=== PATIENT | female | born 1950 | race Caucasian/White ===

== ENCOUNTER 2020-05-07 13:33 | Outpatient (CLI) | payer MEDICARE, SELFPAY ==
[2020-05-07 13:47] LABS: Basophils Percent Auto 0.4 % (0.2-1.2); Eosinophils Absolute Auto 0.2 K/mm3 (0-0.3); Eosinophils Percent Auto 3.1 % (0-4.4); Hematocrit 40.1 % (37.0-47.0); Hemoglobin 13.2 g/dL (12.0-15.0); Immature Granulocyte Absolute 0.01 K/mm3 (0.00-0.031); Immature Granulocyte Percent A 0.2 % (0-0.5); Lymphocytes Absolute Auto 0.68 K/mm3 (0.9-3.2); Lymphocytes Percent Auto 12.4 % (18.3-44.2); Mean Corpuscular HGB Conc 32.9 g/dl (32-36); Mean Corpuscular Hemoglobin 30.5 pg (26-34); Mean Corpuscular Volume 92.6 fl (80-100); Mean Platelet Volume 10.6 fl (7.4-10.4); Monocytes Absolute Auto 0.5 K/mm3 (0.1-0.6); Monocytes Percent Auto 8.4 % (2.6-8.5); Neutrophils Absolute Auto 4.1 K/mm3 (1.3-6.7); Neutrophils Percent Auto 75.5 % (45.5-73.1); Platelet Count Result 158 k/mm3 (150-375); Red Blood Count 4.33 M/mm3 (4.2-5.4); Red Cell Distribution Width 13.9 % (11.5-14.5); White Blood Count 5.5 K/mm3 (4.5-10.0)
[2020-05-07 13:52] LABS: Blood Urea Nitrogen 23 mg/dL (8-26); Carbon Dioxide 31 mmol/L (22-30); Chloride 101 mmol/L (98-109); Estimated Glomerular Filt Rate 44; Glucose 112 mg/dL (70-105); Potassium 3.8 mmol/L (3.5-4.9); Sodium 142 mmol/L (138-146)
== END 2020-05-07 13:34 | disposition home or self-care (01) ==
PROVIDERS: PCP Physician Assistant; Visit Provider Internal Medicine Hematology & Oncology
DX: C50.212 Malignant neoplasm of upper-inner quadrant of left female breast (principal)
CPT/HCPCS: 36415; 80048; 85025

== ENCOUNTER 2020-05-14 12:03 | Outpatient (CLI) | payer MEDICARE, SELFPAY ==
--- NOTE | ~2020-05-14 | MMUS_ITS ---
EXAMINATION: MM diagnostic [facility] BI w [facility]ank, US breast RT limited HISTORY: Bilateral partial mastectomy and radiation treatment in August 2019 for precancer on the r ight and malignancy on the left TECHNIQUE: 3-D tomosynthesis images of both breasts were performed and synthetic 2-D images were gene rated. Bilateral rotated lateral cc views. CAD analysis was submitted and interpreted. High resolutio n breast ultrasound was performed. COMPARISON: 05/16/2019 bilateral diagnostic digital mammogram and limited left breast ultrasound BREAST PARENCHYMAL COMPOSITION: There are scattered areas of fibroglandular density. FINDINGS: MAMMOGRAPHIC FINDINGS: An approximately 7 cm rounded relatively circumscribed opacity is noted in the posterior aspect of th e outer mid right breast. There are adjacent surgical clips. There is asymmetric irregular soft tissue density associated with multiple surgical clips in the post erior aspect of the upper outer quadrant of the left breast. There are accentuated stroma markings th roughout the left breast compared to the right. No suspicious mass or architectural distortion or malignant calcification in either breast is noted o therwise. There are scattered bilateral benign calcifications. ULTRASOUND: An approximately 3 x 8 cm mildly septated fluid collection is identified in the right breast at 9:00 5 cm from the nipple in the area of the surgical scar, consistent with seroma. IMPRESSION: 1. Bilateral postoperative changes including right breast seroma 2. No mammographic evidence of malignancy Recommendation: Routine mammographic screening and any additional imaging follow-up of this breast ca ncer patient as clinically appropriate BI-RADS Category 2: Benign Reviewed, dictated and finalized at location A. IMPRESSION: 1. Bilateral postoperative changes including right breast seroma 2. No mammographic evidence of malignancy Recommendation: Routine mammographic screening and any additional imaging follo w-up of this breast cancer patient as clinically appropriate BI-RADS Category 2: Benign
== END 2020-05-14 12:04 | disposition home or self-care (01) ==
PROVIDERS: PCP Physician Assistant; Visit Provider Radiology Radiation Oncology
DX: C50.111 Malignant neoplasm of central portion of right female breast (principal); R92.8 Other abnormal and inconclusive findings on diagnostic imaging of breast
CPT/HCPCS: 76642; 77062; 77066; G0279

== ENCOUNTER 2020-07-29 15:06 | Outpatient (CLI) | payer MEDICARE, SELFPAY ==
[2020-07-29 15:37] LABS: Basophils Percent Auto 0.3 % (0.2-1.2); Eosinophils Absolute Auto 0.1 K/mm3 (0-0.3); Eosinophils Percent Auto 1.5 % (0-4.4); Hematocrit 39.6 % (37.0-47.0); Immature Granulocyte Absolute 0.01 K/mm3 (0.00-0.031); Immature Granulocyte Percent A 0.2 % (0-0.5); Lymphocytes Absolute Auto 0.71 K/mm3 (0.9-3.2); Lymphocytes Percent Auto 10.9 % (18.3-44.2); Mean Corpuscular HGB Conc 32.8 g/dl (32-36); Mean Corpuscular Hemoglobin 30.5 pg (26-34); Mean Platelet Volume 10.6 fl (7.4-10.4); Monocytes Absolute Auto 0.5 K/mm3 (0.1-0.6); Monocytes Percent Auto 7.5 % (2.6-8.5); Neutrophils Absolute Auto 5.2 K/mm3 (1.3-6.7); Neutrophils Percent Auto 79.6 % (45.5-73.1); Platelet Count Result 180 k/mm3 (150-375); Red Blood Count 4.26 M/mm3 (4.2-5.4); Red Cell Distribution Width 14.3 % (11.5-14.5); White Blood Count 6.5 K/mm3 (4.5-10.0)
[2020-07-29 17:10] LABS: Alanine Aminotransferase 45 U/L (4-35); Albumin Level 4.5 g/dL (3.5-5.1); Alkaline Phosphatase 89 U/L (38-126); Anion Gap 8 mmol/L (8-16); Aspartate Amino Transferase 58 U/L (14-36); Bilirubin,Total 0.6 mg/dL (0.2-1.3); Blood Urea Nitrogen 29 mg/dL (7-17); Calcium 9.8 mg/dL (8.4-10.2); Carbon Dioxide 28 mmol/L (22-30); Chloride 103 mmol/L (98-107); Estimated Glomerular Filt Rate 49; Glucose 101 mg/dL (65-105); Potassium 4.7 mmol/L (3.4-5.0); Sodium 139 mmol/L (137-145)
[2020-08-02 14:21] LABS: CA 27.29 25 U/mL (<38)
== END 2020-07-29 15:07 | disposition home or self-care (01) ==
LOC: ANHLAB 15:08
PROVIDERS: PCP Physician Assistant; Visit Provider Internal Medicine Hematology & Oncology
DX: C50.212 Malignant neoplasm of upper-inner quadrant of left female breast (principal)
CPT/HCPCS: 36415; 80053; 85025; 86300

== ENCOUNTER 2020-09-13 12:45 | Outpatient (CLI) | payer MEDICARE, SELFPAY ==
--- NOTE | ~2020-09-13 | DEXA_ITS ---
Bone Density Report Name: Camila Cherry Age: 70 Sex: Female Ethnicity: White Date of : 1950 Indication: postmenopausal; cancer; Referring Provider: Jo Ann Kumar Study: Bone densitometry was performed. Exam Date: September 13, 2020 Accession number: [id number] Bone Density: Region BMD T-score Z-score Classification AP Spine (L1-L4) 1.365 2.9 5.1 Normal Femoral Neck (Left) 0.665 -1.7 0.2 Osteopenia Total Hip (Left) 0.839 -0.8 0.7 Normal Total Hip Bilateral Avg 0.856 -0.7 0.8 Normal Femoral Neck (Right) 0.669 -1.6 0.3 Osteopenia Total Hip (Right) 0.872 -0.6 1.0 Normal World Health Organization criteria for BMD impression classify patients as: Normal (T-score at or above -1.0), Osteopenia (T-score between -1.0 and -2.5), or Osteoporosis (T-score at or below -2.5). 10-year Fracture Risk(1): Major Osteoporotic Fracture 10% Hip Fracture 1.7% Reported Risk Factors: [place] (), Neck BMD=0.669, BMI=31.1 (1) FRAX(R) Version 3.08. Fracture probability calculated for an untreated patient. Fracture probability may be lower if the patient has received treatment. Clinical Information Provided by Patient: Has used the following medications: Vitamin D, Calcium Has the following medical conditions: Cancer Patient maximum height was 65 Menopause Age: 44 No regular weight bearing exercise Does not regularly consume dairy products Drinks caffeinated beverages Onset of menses at age 15 Number of children 2 Impression: The patient has low bone mass, based on the Left Femoral Neck T-score. The patient has an estimated ten-year risk of hip fracture of 1.7% and an estimated ten-year risk of major fracture of 10%, based on the WHO FRAX algorithm. Discussion: BONE DENSITY IS LOW AT ONE OR MORE SKELETAL SITES. This patient's lowest T-score is low at one or more skeletal sites. It meets the World Health Organization's (WHO) criteria for ?low bone mass? (T-score between -1.0 and -2.5). The patient's 10-year risk of fracture as calculated by FRAX is less than the threshold where pharmacological therapy is recommended by the National Osteoporosis Foundation (NOF). However, all treatment decisions require clinical judgment and consideration of individual patient factors, including patient preferences, comorbidities, previous drug use, risk factors not captured in the FRAX model (e.g., frailty, falls, vitamin D deficiency, increased bone turnover, interval significant decline in bone density) and possible under or overestimation of fracture risk by FRAX. The patient should follow a healthful lifestyle (good nutrition with adequate calcium and vitamin D, and appropriate weight-bearing exercise). Follow-Up: Consider repeating this study in 2 to 3 years to reassess this patient's status, or sooner if there is so
== END 2020-09-13 12:46 | disposition home or self-care (01) ==
PROVIDERS: PCP Physician Assistant; Visit Provider Nurse Practitioner Adult Health
DX: Z78.0 Asymptomatic menopausal state (principal); M85.852 Other specified disorders of bone density and structure, left thigh; M85.851 Other specified disorders of bone density and structure, right thigh
CPT/HCPCS: 77080

== ENCOUNTER 2020-10-29 10:10 | Outpatient (CLI) | payer MEDICARE, SELFPAY ==
[2020-10-29 10:34] LABS: Basophils Percent Auto 0.5 % (0.2-1.2); Eosinophils Absolute Auto 0.2 K/mm3 (0-0.3); Eosinophils Percent Auto 2.8 % (0-4.4); Hemoglobin 13.5 g/dL (12.0-15.0); Immature Granulocyte Absolute 0.02 K/mm3 (0.00-0.031); Immature Granulocyte Percent A 0.3 % (0-0.5); Lymphocytes Absolute Auto 0.91 K/mm3 (0.9-3.2); Mean Corpuscular HGB Conc 32.9 g/dl (32-36); Mean Corpuscular Hemoglobin 30.4 pg (26-34); Mean Corpuscular Volume 92.3 fl (80-100); Mean Platelet Volume 10.1 fl (7.4-10.4); Monocytes Absolute Auto 0.5 K/mm3 (0.1-0.6); Monocytes Percent Auto 8.3 % (2.6-8.5); Neutrophils Absolute Auto 4.4 K/mm3 (1.3-6.7); Neutrophils Percent Auto 73.1 % (45.5-73.1); Platelet Count Result 168 k/mm3 (150-375); Red Blood Count 4.44 M/mm3 (4.2-5.4); White Blood Count 6.1 K/mm3 (4.5-10.0)
[2020-10-29 12:53] LABS: Alanine Aminotransferase 33 U/L (4-35); Albumin Level 4.2 g/dL (3.5-5.1); Alkaline Phosphatase 80 U/L (38-126); Anion Gap 9 mmol/L (8-16); Aspartate Amino Transferase 36 U/L (14-36); Bilirubin,Total 0.7 mg/dL (0.2-1.3); Blood Urea Nitrogen 24 mg/dL (7-17); Calcium 10.3 mg/dL (8.4-10.2); Carbon Dioxide 31 mmol/L (22-30); Chloride 104 mmol/L (98-107); Estimated Glomerular Filt Rate 55; Glucose 101 mg/dL (65-105); Potassium 4.2 mmol/L (3.4-5.0); Sodium 144 mmol/L (137-145)
== END 2020-10-29 10:11 | disposition home or self-care (01) ==
LOC: ANHLAB 10:12
PROVIDERS: PCP Physician Assistant; Visit Provider Internal Medicine Hematology & Oncology
DX: C50.212 Malignant neoplasm of upper-inner quadrant of left female breast (principal); Z17.0 Estrogen receptor positive status [ER+]
CPT/HCPCS: 36415; 80053; 85025

== ENCOUNTER 2021-01-28 14:35 | Outpatient (CLI) | payer MEDICARE, SELFPAY ==
[2021-01-28 14:53] LABS: Basophils Percent Auto 0.4 % (0.2-1.2); Eosinophils Absolute Auto 0.3 K/mm3 (0-0.3); Eosinophils Percent Auto 3.5 % (0-4.4); Hematocrit 41.1 % (37.0-47.0); Hemoglobin 13.4 g/dL (12.0-15.0); Immature Granulocyte Absolute 0.02 K/mm3 (0.00-0.031); Immature Granulocyte Percent A 0.3 % (0-0.5); Lymphocytes Absolute Auto 0.88 K/mm3 (0.9-3.2); Lymphocytes Percent Auto 12.4 % (18.3-44.2); Mean Corpuscular HGB Conc 32.6 g/dl (32-36); Mean Corpuscular Hemoglobin 30.2 pg (26-34); Mean Corpuscular Volume 92.8 fl (80-100); Mean Platelet Volume 10.1 fl (7.4-10.4); Monocytes Absolute Auto 0.6 K/mm3 (0.1-0.6); Monocytes Percent Auto 8.2 % (2.6-8.5); Neutrophils Absolute Auto 5.4 K/mm3 (1.3-6.7); Neutrophils Percent Auto 75.2 % (45.5-73.1); Platelet Count Result 185 k/mm3 (150-375); Red Blood Count 4.43 M/mm3 (4.2-5.4); Red Cell Distribution Width 14.1 % (11.5-14.5); White Blood Count 7.1 K/mm3 (4.5-10.0)
[2021-01-28 16:57] LABS: Alanine Aminotransferase 29 U/L (4-35); Albumin Level 4.5 g/dL (3.5-5.1); Alkaline Phosphatase 86 U/L (38-126); Anion Gap 7 mmol/L (8-16); Aspartate Amino Transferase 43 U/L (14-36); Bilirubin,Total 0.4 mg/dL (0.2-1.3); Blood Urea Nitrogen 25 mg/dL (7-17); Calcium 10.1 mg/dL (8.4-10.2); Carbon Dioxide 34 mmol/L (22-30); Chloride 102 mmol/L (98-107); Estimated Glomerular Filt Rate 40; Glucose 91 mg/dL (65-105); Potassium 3.9 mmol/L (3.4-5.0); Sodium 143 mmol/L (137-145)
[2021-02-01 10:26] LABS: CA 15-3 17 U/mL (<32)
== END 2021-01-28 14:36 | disposition home or self-care (01) ==
PROVIDERS: PCP Physician Assistant; Visit Provider Internal Medicine Hematology & Oncology
DX: C50.212 Malignant neoplasm of upper-inner quadrant of left female breast (principal); Z17.0 Estrogen receptor positive status [ER+]
CPT/HCPCS: 36415; 80053; 85025; 86300

== ENCOUNTER 2021-05-16 14:24 | Outpatient (CLI) | payer MEDICARE, SELFPAY ==
--- NOTE | ~2021-05-16 | MM_ITS ---
EXAMINATION: MM screening [facility] BI w mayank HISTORY: Screening mammogram, history of left breast cancer TECHNIQUE: Craniocaudal and mediolateral oblique 3-D tomosynthesis images were obtained and synthetic 2-D images were generated. CAD analysis was submitted and interpreted. COMPARISON: 05/14/2020, 05/16/2019 BREAST PARENCHYMAL COMPOSITION: There are scattered areas of fibroglandular density. FINDINGS: There are stable lumpectomy changes in the upper outer quadrant of the left breast. A large seroma of the upper outer quadrant of the right breast persists but has decreased in size. There is no evidence of suspicious mass, calcification, or architectural distortion to suggest malignancy in e ither breast. There has been no suspicious interval change. IMPRESSION: 1. No mammographic evidence of malignancy. 2. Recommend routine screening mammography in one year. BI-RADS Category 2: Benign finding(s). Reviewed, dictated and finalized at location A.
== END 2021-05-16 14:25 | disposition home or self-care (01) ==
LOC: ANHIMG 14:26
PROVIDERS: PCP Physician Assistant; Visit Provider Surgery
DX: Z12.31 Encounter for screening mammogram for malignant neoplasm of breast (principal)
CPT/HCPCS: 77063; 77067

== ENCOUNTER 2021-06-03 13:38 | Outpatient (CLI) | payer MEDICARE, SELFPAY ==
[2021-06-03 14:04] LABS: Basophils Percent Auto 0.4 % (0.2-1.2); Eosinophils Absolute Auto 0.2 K/mm3 (0-0.3); Eosinophils Percent Auto 3.2 % (0-4.4); Hematocrit 37.1 % (37.0-47.0); Hemoglobin 12.1 g/dL (12.0-15.0); Immature Granulocyte Absolute 0.02 K/mm3 (0.00-0.031); Immature Granulocyte Percent A 0.3 % (0-0.5); Lymphocytes Absolute Auto 0.85 K/mm3 (0.9-3.2); Lymphocytes Percent Auto 12.5 % (18.3-44.2); Mean Corpuscular HGB Conc 32.6 g/dl (32-36); Mean Corpuscular Hemoglobin 30.1 pg (26-34); Mean Corpuscular Volume 92.3 fl (80-100); Mean Platelet Volume 10.5 fl (7.4-10.4); Monocytes Absolute Auto 0.5 K/mm3 (0.1-0.6); Monocytes Percent Auto 6.7 % (2.6-8.5); Neutrophils Absolute Auto 5.2 K/mm3 (1.3-6.7); Neutrophils Percent Auto 76.9 % (45.5-73.1); Platelet Count Result 172 k/mm3 (150-375); Red Blood Count 4.02 M/mm3 (4.2-5.4); Red Cell Distribution Width 14.3 % (11.5-14.5); White Blood Count 6.8 K/mm3 (4.5-10.0)
[2021-06-03 18:41] LABS: Alanine Aminotransferase 80 U/L (4-35); Albumin Level 4.1 g/dL (3.5-5.1); Alkaline Phosphatase 132 U/L (38-126); Anion Gap 9 mmol/L (8-16); Aspartate Amino Transferase 49 U/L (14-36); Bilirubin,Total 0.4 mg/dL (0.2-1.3); Blood Urea Nitrogen 31 mg/dL (7-17); Calcium 9.6 mg/dL (8.4-10.2); Carbon Dioxide 29 mmol/L (22-30); Chloride 104 mmol/L (98-107); Estimated Glomerular Filt Rate 37; Glucose 100 mg/dL (65-110); Potassium 3.8 mmol/L (3.4-5.0); Sodium 142 mmol/L (137-145)
[2021-06-06 06:49] LABS: CA 15-3 15 U/mL (<32)
== END 2021-06-03 13:39 | disposition home or self-care (01) ==
LOC: ANHLAB 13:43
PROVIDERS: PCP Physician Assistant; Visit Provider Internal Medicine Hematology & Oncology
DX: C50.212 Malignant neoplasm of upper-inner quadrant of left female breast (principal); Z17.0 Estrogen receptor positive status [ER+]
CPT/HCPCS: 36415; 80053; 85025; 86300

== ENCOUNTER 2021-07-31 08:50 | Outpatient (CLI) | payer MEDICARE, SELFPAY ==
--- NOTE | ~2021-07-31 | US_ITS ---
EXAMINATION: US abdomen complete DATE: 07/31/2021 10:05 INDICATION: Elevated liver function tests TECHNIQUE: Multiple grayscale and Doppler ultrasound images of the abdomen were obtained. COMPARISON: None available FINDINGS: Bowel gas obscures visualization of the pancreas. The liver is normal with normal echogenic ity and echotexture. No surface nodularity. Normal hepatopetal flow in the main portal vein. The gall bladder is contracted and contains multiple stones. No gallbladder wall thickening or pericholecystic fluid are identified. The normal common bile duct measures 4 mm. There was no sonographic Loya sig n. The visualized portions of the aorta and inferior vena cava are normal. The right kidney measures 7.8 x 3.5 x 3.7 cm. The left kidney measures 11.0 x 3.4 x 4.2 cm. The kidne ys demonstrate normal parenchymal echogenicity. There is no hydronephrosis. The spleen is normal in a ppearance and measures 10.7 cm. IMPRESSION: 1. Cholelithiasis without evidence cholecystitis. Reviewed, dictated and finalized at location B.
== END 2021-07-31 08:51 | disposition home or self-care (01) ==
LOC: ANHIMG 08:51
PROVIDERS: PCP Physician Assistant; Visit Provider Internal Medicine Hematology & Oncology
DX: R79.89 Other specified abnormal findings of blood chemistry (principal); K80.20 Calculus of gallbladder without cholecystitis without obstruction
CPT/HCPCS: 76700

== ENCOUNTER 2022-06-22 14:45 | Outpatient (CLI) | payer MEDICARE, SELFPAY ==
--- NOTE | ~2022-06-22 | US_ITS ---
EXAMINATION: US venous doppler [facility] DATE: 06/22/2022 15:37 INDICATION: Bilateral lower limb pain TECHNIQUE: Odom scale images without and with compression and Doppler images of the bilateral lower e xtremity veins were obtained. COMPARISON: None FINDINGS: The right common femoral vein, profunda femoral vein, femoral vein, popliteal vein, peroneal trunk, p osterior tibial veins, and greater saphenous vein are patent. The left common femoral vein, profunda femoral vein, femoral vein, popliteal vein, peroneal trunk, po sterior tibial veins, and greater saphenous vein are patent. IMPRESSION: 1. Patent bilateral lower extremity veins. No evidence of deep venous thrombosis. Reviewed, dictated and finalized at location A. IMPRESSION: 1. Patent bilateral lower extremity veins. No evidence of deep venous thrombosi s.
== END 2022-06-22 14:46 | disposition home or self-care (01) ==
PROVIDERS: PCP Physician Assistant; Visit Provider Internal Medicine Medical Oncology
DX: M79.604 Pain in right leg (principal); M79.605 Pain in left leg
CPT/HCPCS: 93970

== ENCOUNTER 2022-06-25 10:11 | Outpatient (CLI) | payer MEDICARE, SELFPAY ==
--- NOTE | ~2022-06-25 | MM_ITS ---
EXAMINATION: MM screening [facility] BI w mayank HISTORY: Screening mammogram TECHNIQUE: Craniocaudal and mediolateral oblique 3-D tomosynthesis images were obtained and synthetic 2-D images were generated. CAD analysis was submitted and interpreted. COMPARISON: 05/16/2021 bilateral screening mammogram 05/14/2020 bilateral diagnostic mammography and limited right breast ultrasound 05/16/2019 bilateral diagnostic mammography and limited left breast ultrasound BREAST PARENCHYMAL COMPOSITION: There are scattered areas of fibroglandular density. FINDINGS: Stable large seroma and some overlying retraction in the posterior outer mid right breast. Stable postsurgical scarring and retraction in the posterior upper outer quadrant of the left breast. Occasional benign calcifications. No interval suspicious mass or new architectural distortion or retr action, skin thickening or retraction is noted. There is no evidence of suspicious mass, calcificatio n, or architectural distortion to suggest malignancy in either breast. There has been no suspicious i nterval change. IMPRESSION: 1. No mammographic evidence of malignancy. 2. Recommend routine screening mammography in one year. BI-RADS Category 2: Benign finding(s). Reviewed, dictated and finalized at location C.
== END 2022-06-25 10:12 | disposition home or self-care (01) ==
PROVIDERS: PCP Physician Assistant; Visit Provider Surgery
DX: Z12.31 Encounter for screening mammogram for malignant neoplasm of breast (principal)
CPT/HCPCS: 77063; 77067

== ENCOUNTER 2022-10-16 11:29 | Outpatient (CLI) | payer MEDICARE, SELFPAY ==
[2022-10-16 11:49] LABS: Appearance Urine Slightly Cloudy (Clear); Bilirubin Urine Negative (Negative); Blood Urine 2+ (Negative); Color Urine Yellow (Yellow); Glucose Urine UA Negative (Negative); Ketones Urine Negative (Negative); Leukocyte Esterase Ur 3+ LEU/UL (NEGATIVE); Nitrate Urine Positive (Negative); Protein Urine 2+ mg/dL (Negative)
[2022-10-16 11:57] LABS: Bacteria Urine Trace /hpf; Mucus Urine Rare /lpf; RBC Urine 51-75 /hpf (0-2); Squamous Epithelial Cell Urine Occasional /hpf (Few); WBC Urine >75 /hpf (0-3)
[2022-10-16 11:58] LABS: Add Urine Microscopic? YES
== END 2022-10-16 11:30 | disposition home or self-care (01) ==
PROVIDERS: PCP Physician Assistant; Visit Provider Physician Assistant
DX: R30.0 Dysuria (principal)
CPT/HCPCS: 81001; 87077; 87086; 87186

== ENCOUNTER 2023-06-28 14:44 | Outpatient (CLI) | payer MEDICARE, SELFPAY ==
--- NOTE | ~2023-06-28 | MM_ITS ---
EXAMINATION: MM screening [facility] BI w mayank HISTORY: History of left breast cancer in three benign right breast surgeries TECHNIQUE: Craniocaudal and mediolateral oblique 3-D tomosynthesis images were obtained and synthetic 2-D images were generated. CAD analysis was submitted and interpreted. COMPARISON: 06/25/2022, 05/16/2021, 05/14/2020, 05/16/2019 BREAST PARENCHYMAL COMPOSITION: There are scattered areas of fibroglandular density. FINDINGS: There are stable lumpectomy changes in the upper outer quadrant of the left breast. A serom a in the upper outer quadrant of the right breast persists but has decreased in size. No suspicious m ass, calcification, or architectural distortion are identified in either breast to suggest malignancy . There has been no suspicious interval change. IMPRESSION: 1. No mammographic evidence of malignancy. 2. Recommend routine screening mammography in one year. BI-RADS Category 2: Benign finding(s). Reviewed, dictated and finalized at location A.
== END 2023-06-28 14:45 | disposition home or self-care (01) ==
PROVIDERS: PCP Physician Assistant; Visit Provider Surgery
DX: Z12.31 Encounter for screening mammogram for malignant neoplasm of breast (principal)
CPT/HCPCS: 77063; 77067

== ENCOUNTER 2023-08-11 12:40 | Outpatient (CLI) | payer MEDICARE, SELFPAY ==
--- NOTE | ~2023-08-11 | CT_ITS ---
Noncontrast CT scan of the left femur CLINICAL HISTORY: Breast cancer, pain TECHNIQUE: Axial noncontrast imaging of the left femur was performed. Sagittal and coronal reformatte d images were constructed. Dose reduction technique was used on this scan by utilizing automated expo sure control and iterative reconstruction technique. The dose-length product (DLP) was 1117.91 mGy-cm . Findings: No fracture and 5. No lytic or blastic lesion, or parasellar retraction, as identified. The re is severe osteoarthritis of the left hip joint, with [id number] appearance since severe superior joint space narrowing. There is mild reactive sclerosis and subchondral cystic change in the superio r left acetabulum and superior aspect of the left femoral head. Joint spaces at the knee are intact. Visualized musculature unremarkable. Probable moderate left hip joint effusion. Subcutaneous soft tis sues are unremarkable. IMPRESSION: Severe left hip joint osteoarthritis, as detailed above. Moderate left hip joint effusion, probably reactive. No lytic or blastic lesion, or fracture, identified. Reviewed, dictated and finalized at location . BOSS
== END 2023-08-11 12:41 | disposition home or self-care (01) ==
LOC: ANHIMG 12:44
PROVIDERS: PCP Physician Assistant; Visit Provider Internal Medicine Medical Oncology
DX: C50.412 Malignant neoplasm of upper-outer quadrant of left female breast (principal); Z17.0 Estrogen receptor positive status [ER+]; G89.3 Neoplasm related pain (acute) (chronic); M16.12 Unilateral primary osteoarthritis, left hip; M25.452 Effusion, left hip
CPT/HCPCS: 73700

== ENCOUNTER 2023-10-01 09:08 | Outpatient (CLI) | payer MEDICARE, SELFPAY ==
--- NOTE | ~2023-10-01 | XR_ITS ---
AP view of the pelvis and AP and lateral views of the left hip Clinical history: Pain Findings: No acute fracture or dislocation is seen. There is severe left hip joint osteoarthritis, wi th superior joint space narrowing and reactive sclerosis. Right hip joint space is preserved. SI join ts are unremarkable. Soft tissues are unremarkable. Impression: Severe left hip joint osteoarthritis. Reviewed, dictated and finalized at location M. [employer] Impression: Severe left hip joint osteoarthritis.
== END 2023-10-01 09:09 | disposition home or self-care (01) ==
PROVIDERS: PCP Physician Assistant; Visit Provider Orthopaedic Surgery
DX: M16.12 Unilateral primary osteoarthritis, left hip (principal)
CPT/HCPCS: 73502

== ENCOUNTER 2023-11-10 12:09 | Outpatient (CLI) | payer MEDICARE, SELFPAY ==
--- NOTE | 2023-11-10 12:19 | ECG_ITS ---
Measurements Intervals [place] Rate: 69 P: 58 LA: 196 QRS: 69 QRSD: 158 T: 38 QT: 420 QTc: 452 Interpretive Statements SINUS RHYTHM RIGHT BUNDLE BRANCH BLOCK [120+ ms QRS DURATION, UPRIGHT V1, 40+ ms S IN I/aVL/V4/V5/V6] ABNORMAL ECG NO PREVIOUS ECG AVAILABLE FOR COMPARISON Electronically Signed On 11-10-2023 13:19:56 [employer] by Everardo Cannon M.D.
[2023-11-10 13:16] LABS: Hematocrit 38.3 % (37.0-47.0); Hemoglobin 12.1 g/dL (12.0-15.0)
[2023-11-10 13:30] LABS: Albumin Level 4.1 g/dL (3.5-5.1); Estimated Glomerular Filt Rate 28; Glucose 97 mg/dL (65-110)
== END 2023-11-10 12:10 | disposition home or self-care (01) ==
LOC: ANHLAB 12:14
PROVIDERS: PCP Physician Assistant; Visit Provider Orthopaedic Surgery
DX: E78.5 Hyperlipidemia, unspecified (principal); M16.12 Unilateral primary osteoarthritis, left hip; I45.10 Unspecified right bundle-branch block
CPT/HCPCS: 36415; 82040; 82565; 82947; 85014; 85018; 93005

== ENCOUNTER 2024-01-13 08:37 | Outpatient (CLI) | payer MEDICARE, SELFPAY ==
--- NOTE | ~2024-01-13 | NM_ITS ---
EXAMINATION: NM daniel stress w perfusion DATE: 01/13/2024 10:40 INDICATION: Encounter for preprocedural cardiovascular examination TECHNIQUE: Rest images were obtained following intravenous administration of 10.8 mCi Tc99m tetrofosm in (Myoview). The patient was infused intravenously with Lexiscan (Regadenoson). Then, 34.7 mCi Tc99m tetrofosmin (Myoview) was administered intravenously, and stress images were obtained. Data was lew nstructed into short axis and horizontal and vertical long axis SPECT images. Gated SPECT images were also obtained. COMPARISON: None. FINDINGS: There is no definite reversible or fixed perfusion abnormality to suggest ischemia or infar ction. There is normal left ventricular chamber size, wall motion and ejection fraction. Left ventr icular ejection fraction measures >70%. IMPRESSION: 1. Normal myocardial perfusion at rest and during stress. 2. Left ventricular ejection fraction measuring >70%. Reviewed, dictated and finalized at location A.
--- NOTE | 2024-01-13 08:45 | EST_ITS ---
Patient Info Name: Camila Cherry Age: 73 years : 1950 Gender: Female Ht: 64 in Wt: 181 lbs BSA: 1.95 m2 HR: 67 bpm BP: 143 / 81 mmHg Heart Rhythm: Sinus Rhythm Exam Date: 01/13/2024 9:37 AM Exam Location: Echo Lab Patient Status: Outpatient Admit Date: 01/13/2024 Staff Ordering Physician: Sebastian Kitchen DO Attending Provider: Sebastian Kitchen DO Exercise Technologist: Angie Travis CT Exercise Physician: Sebastian Kitchen DO Exam Type: CA stress daniel w NM Study Info Indications Z01.810 - Encounter for preprocedural cardiovascular examination A regadenoson stress test was performed. Summary 1. 1. Negative lexiscan stress test for ischemic ST changes by ECG criteria. 2. 2. Baseline hypertension. 3. 3. Nuclear scan to follow and will be reported separately. Please correlate with it. 4. 4. Patient informed of the above results. Protocol: Lexiscan Stress ECG Details Stage: REST Duration (min): 1 min : 7 sec HR (bpm): 68 SBP (mmHg): 143 DBP (mmHg): 81 Stage: REST Duration (min): 6 min : 11 sec HR (bpm): 67 SBP (mmHg): 146 DBP (mmHg): 81 Stage: STAGE 1 Duration (min): 0 min : 59 sec HR (bpm): 69 SBP (mmHg): 146 DBP (mmHg): 81 Stage: RECOVERY Duration (min): 1 min : 0 sec HR (bpm): 82 SBP (mmHg): 146 DBP (mmHg): 81 Stage: RECOVERY Duration (min): 2 min : 0 sec HR (bpm): 78 SBP (mmHg): 146 DBP (mmHg): 81 Stage: RECOVERY Duration (min): 3 min : 0 sec HR (bpm): 76 SBP (mmHg): 137 DBP (mmHg): 77 Stage: RECOVERY Duration (min): 3 min : 18 sec HR (bpm): 76 SBP (mmHg): 137 DBP (mmHg): 77 Rest HR: 67 bpm Peak HR: 83 bpm Rest Sys BP: 146 mmHg Peak Sys BP: 137 mmHg Max Pred HR: 146 bpm % Max Pred HR: 57 % Target HR: 124 bpm Max RPP: 11,371 bpm*mmHg Termination Reason: Completed protocol Cardiac Symptoms: Shortness of breath Total Time: 1 min : 0 sec Rest Lynne BP: 81 mmHg Peak Lynne BP: 77 mmHg Total Dose: 0.4 mg Resting ECG Sinus rhythm. Stress ECG No ST changes. Arrhythmias None. Report Signatures
== END 2024-01-13 08:38 | disposition home or self-care (01) ==
PROVIDERS: PCP Physician Assistant; Visit Provider Internal Medicine Cardiovascular Disease
DX: Z01.810 Encounter for preprocedural cardiovascular examination (principal)
CPT/HCPCS: 78452; 93017; A9502; J2785

== ENCOUNTER 2024-03-15 11:34 | Outpatient (CLI) | payer MEDICARE, SELFPAY ==
[2024-03-15 13:27] LABS: Basophils Percent Auto 0.4 % (0.2-1.2); Eosinophils Absolute Auto 0.2 K/mm3 (0-0.3); Eosinophils Percent Auto 2.6 % (0-4.4); Hemoglobin 12.7 g/dL (12.0-15.0); Immature Granulocyte Absolute 0.02 K/mm3 (0.00-0.031); Immature Granulocyte Percent A 0.2 % (0-0.5); Lymphocytes Percent Auto 13.7 % (18.3-44.2); Mean Corpuscular HGB Conc 31.8 g/dl (32-36); Mean Corpuscular Hemoglobin 31.9 pg (26-34); Mean Corpuscular Volume 100.5 fl (80-100); Mean Platelet Volume 10.3 fl (7.4-10.4); Monocytes Absolute Auto 0.6 K/mm3 (0.1-0.6); Monocytes Percent Auto 7.2 % (2.6-8.5); Neutrophils Absolute Auto 6.1 K/mm3 (1.3-6.7); Neutrophils Percent Auto 75.9 % (45.5-73.1); Platelet Count Result 158 k/mm3 (150-375); Red Blood Count 3.98 M/mm3 (4.2-5.4)
[2024-03-15 13:30] LABS: Albumin Level 4.1 g/dL (3.5-5.1)
[2024-03-15 13:34] LABS: Anion Gap 5 mmol/L (4-12); Blood Urea Nitrogen 37 mg/dL (7-17); Calcium 10.4 mg/dL (8.4-10.2); Carbon Dioxide 28 mmol/L (22-30); Chloride 109 mmol/L (98-107); Estimated Glomerular Filt Rate 26; Glucose 101 mg/dL (65-110); Potassium 4.7 mmol/L (3.4-5.0); Sodium 142 mmol/L (137-145)
[2024-03-15 13:45] LABS: Urine Cotinine NEGATIVE
[2024-03-15 13:48] LABS: Partial Thromboplastin Time 28.5 Seconds (22.3-36.8); Prothrombin Time 13.2 Seconds (11.1-14.7)
[2024-03-15 13:50] LABS: Hemoglobin A1C 5.8 % (<5.7)
[2024-03-15 14:37] LABS: MRSA (PCR) NOT DETECTED (NOT DETECTE)
== END 2024-03-15 11:35 | disposition home or self-care (01) ==
PROVIDERS: Anesthesiology; Visit Provider Orthopaedic Surgery
DX: M16.12 Unilateral primary osteoarthritis, left hip (principal); N18.32 Chronic kidney disease, stage 3b; Z01.818 Encounter for other preprocedural examination
CPT/HCPCS: 36415; 80048; 80307; 82040; 83036; 85025; 85610; 85730; 87641

== ENCOUNTER 2024-04-11 02:30 | Day surgery (SDC) | payer MEDICARE, SELFPAY ==
[2024-03-15 11:00] VITALS: BP 141/68; PULSE 68; RESP 16; TEMP 37.1; O2SAT 95
--- NOTE | 2024-03-15 11:43 | PC.NURSE ---
Report to the Outpatient Waiting Room, entrance under the green pavilion located off [facility], at time ___6:00AM____ on date ___04/11/24____. Planned Procedure Time: __7:30AM . Time changes happen often and if your time is changed the preop area will call you the afternoon before. - You and your visitor will be asked to self-screen and do not enter if you have any COVID symptoms. - A mask is optional within the hospital at this time. Patients may have clear liquids (water, carbonated beverages, clear teas, apple juice) until 3 hours prior to surgery with a maximum of 20 ounces. - No food from midnight until time of surgery. Take the following medications with a SIP of water the morning of surgery: CLONIDINE, LABETALOL. USE ALBUTEROL INHALER NEEDED.__ DO NOT STOP ANY OF YOUR OTHER PRESCRIPTION MEDICATIONS PRIOR TO SURGERY ?EXCEPT THE FOLLOWING Medications to discontinue per physician ____HOLD ALL VITAMINS/SUPPLEMENTS 3 DAYS PRE-OP PER ANESTHESIA Date to take last dose 04/07/24 Please no make-up, nail thai, hairspray, perfume, deodorant, or body powder the day of surgery. No jewelry (including any body piercings) or valuables the day of surgery, leave them at home. Please take a shower or bath the night before, or the morning of, surgery with an antibacterial soap. Wear comfortable, loose fitting clothing. - Jewelry must be removed prior to entering the operating room. Rings and piercings that are not removed may be cut off. - The hospital will not accept responsibility for valuables. - Please leave all valuables, including medications, at home the day of surgery. If you are going home after surgery, a licensed straight truck driver must drive you home. - NO public transportation without another adult if you receive anesthesia. - We recommend that an adult stay with you for 24 hours following discharge. - We also recommend that you do not drive, make important decision, drink alcoholic beverages, or take any drugs that were not prescribed by your health care provider for at least 24 hours after your discharge time. If you or anyone in your household have experienced Covid symptoms in the past week, please notify your surgeon or the nurse liaison at the phone number below for possible testing. Telephone instructions given to __PATIENT & HUSBAND and asked if any additional questions and then verbalized understanding. Patient advised to call surgeon office or pre surgery nurse liaison [phone] if any additional questions.
[2024-03-15 12:05] VITALS: BMI 33.3
[2024-04-11] VITALS (25 sets, daily range): BP systolic 115–210; BP diastolic 49–108; PULSE 69–92; RESP 12–20; TEMP 35.6–36.7; O2SAT 90–100; BMI 35.6
--- NOTE | ~2024-04-11 | XR_ITS ---
EXAMINATION: XR hip LT min 2V DATE: 04/11/2024 10:03 INDICATION: Postoperative evaluation following left total hip arthroplasty TECHNIQUE: Anteroposterior and lateral views of the left hip were obtained. COMPARISON: 03/20/2024 FINDINGS: Interval placement of a left total hip arthroplasty which appears well seated in near anatomic alignm ent.At least moderate osteoarthritis at the visualized lower lumbar spine. Mild bilateral sacroiliac osteoarthritis. Expected subcutaneous gas in the postoperative bed. No fractures identified. IMPRESSION: 1. Left total hip arthroplasty, negative for postoperative purposes. Reviewed, dictated and finalized at location A.
[2024-04-11] MEDS: LACTATED RINGERS 1,000 ML 30 ML IV CONT ×2 (06:35→09:42)
[2024-04-11] MEDS: ACETAMINOPHEN 500 MG TABLET 1000 MG PO (06:38)
[2024-04-11] MEDS: TRANEXAMIC ACID 1,000MG/ISO100 1,000 MG/100 ML BAG 200 MG IVPB (06:40)
--- NOTE | 2024-04-11 06:55 | WPDANESEPPF ---
Anes - Initial Pre Proc Eval Procedure: Operation Date: 04/11/24 07:30 Proposed Procedures p Left Total Hip Arthroplasty - Vlad Wright MD Date/Time: 04/11/24 06:55 Surgeon: Vlad Wright MD Pre Op Diagnosis: primary OA left hip Patient Data Age: 74 Gender: F Height: 1.6 m Weight: 85.4 kg Last Vital Signs Temp 98.8 F 03/15/24 11:00 Pulse 68 03/15/24 11:00 Resp 16 03/15/24 11:00 BP 141/68 H 03/15/24 11:00 Pulse Ox 95 03/15/24 11:00 O2 Del Method Room Air 03/15/24 11:00 Allergies Allergy/AdvReac Type Severity Reaction Status Date / Time hydrochlorothiazide Allergy Unknown Gout Verified 04/11/24 06:51 Home Medications Medication Instructions Recorded Confirmed Type calcium carbonate (Calci-Chew) 500 mg PO DAILY 07/31/19 04/11/24 History cholecalciferol (vitamin D3) 50 2,000 unit PO DAILY 10/02/19 04/11/24 History mcg (2,000 unit) capsule multivitamin 1 cap PO DAILY 01/09/20 04/11/24 History raloxifene 60 mg tablet 60 mg PO DAILY 10/20/21 04/11/24 History albuterol sulfate 90 mcg/actuation 2 puff inhalation Q4-6H PRN 12/21/23 04/11/24 Rx aerosol inhaler (Ventolin HFA) shortness of breath or wheezing #8.5 grams labetalol 100 mg tablet 200 mg PO BID #360 tabs 01/19/24 04/11/24 Rx allopurinol 300 mg tablet 300 mg PO DAILY #90 tabs 02/08/24 04/11/24 Rx acetaminophen 650 mg 1,300 mg PO Q12H 03/15/24 04/11/24 History tablet,extended release clonidine HCl 0.1 mg tablet 0.1 mg PO BID 03/15/24 04/11/24 History lisinopril 40 mg tablet 40 mg PO QAM 03/15/24 04/11/24 History spironolactone 25 mg tablet 25 mg PO QAM 03/15/24 04/11/24 History Patient hx anesthesia problems: none Family hx anesthesia problems: none Results Review: All pre-operative results and documents have been reviewed as part of the pre-operative evaluation. [facility] Past Medical History Medical History Josue Zamora HTN (hypertension) Surgical History Surgical History History of lumpectomy of left breast (~10/2019) History of lumpectomy of right breast (~11/2019) Family History Family History Grandparent Diabetes mellitus Family history of hypercholesterolemia Mother Hypertension, Onset Age: 40 Social History Social History Smoking packs per day: 0.2 Smoking cigarettes per day: 4.0 Years smoked: 10 Smoking pack-years: 2.00 Smoking status: Former smoker Tobacco type: cigarettes Second hand tobacco smoke exposure: No Smoking end date: 03/27/86 Additional smoking assessment comments: social smoker one pack lasted a week Alcohol intake: current Drinks per week: 6 Substance use: never Substance use type: does not use Do You Feel Safe in your Home?: Yes Lack of Transportation: No Lack of Food: Never True Current Housing: I Have Housing Concerned About Future Housing: No Difficulty Paying Gas/Electric Bills: No Difficulty Paying for Meds: No Currently Unemployed: No Education: Bachelor's Degree Difficulty w/ Childcare or Family Care: No Living arrangements: with family Additional living arrangements comments: [facility] Gender identity (if verbalized by the patient): Female Sexual Orientation (if Verbalized by the Patient): Straight or Heterosexual Spiritual care concerns: No Anes - Eval Final PreProcedure Day of Procedure 04/11/24 06:55 Patient weight: obese Heart: regular rate and rhythm Lungs: clear to auscultation Airway: Mallampati scale class II Neurological: alert and oriented Last oral intake: >/= 8 hours ASA classification: III Emergent: no Anesthetic plan: proceed Anesthesia type and monitoring: general ETT and standard monitoring Results Review: All pre-operative results
--- NOTE | 2024-04-11 07:17 | WPDHPUPDATE1 ---
History and Physical Update Update Date/Time: 04/11/24 07:17 History and Physical has been reviewed, including an updated exam of the patient. There are NO changes in the patient's condition. Risks, benefits, and alternatives have been discussed and questions answered. Patient agrees to proceed with procedure.
[2024-04-11] MEDS: ceFAZolin 2 GM/D5W 50 ML 2 GM/50 ML BAG IVPB ×3 (07:33→22:00)
[2024-04-11] MEDS: SODIUM CHLORIDE 0.9% IV 37.7 ML, MORPHINE SULFATE INJ (*CRX) 2 MG, ROPivacaine HCL 1% 2... INFILTRATE (08:10)
--- NOTE | 2024-04-11 09:51 | W.PM.PROC2 ---
Procedure Note - Detailed Date of Procedure 04/11/24 Pre-op Diagnosis Primary OA left hip Post-op Diagnosis Same Procedure Performed Right Total Hip Arthroplasty Surgeon Vlad Wright MD Manager Paid Silvana Johansen PA-C Anesthesia General Findings Severe effusion and synovitis. Description of Procedure The patient was given preoperative antibiotics. A general anesthetic was administered. The patient was carefully placed in the lateral decubitus position on the PEG board. The shoulders and hips were carefully positioned for component and leg length positioning reference. The hip was prepped and draped in the usual sterile fashion. A longitudinal incision was created over the posterior aspect of the greater trochanter. Careful dissection was brought down through the deep fascia with electrocautery. A minimally invasive optimized posterior approach to the hip was performed. The short external rotators and capsule were taken down in an L-shaped capsulotomy. The tissue was tagged for later repair using number 2 high strength suture. The femoral neck was measured and taken in situ. The femoral head was removed. The acetabulum was carefully exposed. The inferior capsule was released. The labrum was resected. The acetabulum was sequentially reamed to the intended cup size. The cup was impacted into position with excellent press-fit. Typical anatomic landmarks, including the bony contact points as well as the inferior transverse acetabular ligament were used to confirm cup positioning with preoperative templating. Attention was turned to the femur, which was carefully exposed. The hip was reamed and then broached sequentially. Excellent press-fit was obtained with the broach. The hip was trialed. Measurements were utilized, including the lesser trochanter as well as the center of the femoral head and the tip of the trochanter, and excellent assessment of the offset and leg lengths were confirmed. The real component was impacted into position. Trialing confirmed appropriate leg length and offset with soft tissue balancing as well apparent feel of the leg, both at the knee and the heel. Soft tissues were assessed using the the iliotibial band. Reduction of the posterior capsule and external rotators were also used as a secondary assessment. The hip was copiously irrigated with pulsatile lavage periodically throughout the procedure. The real components were then assembled and reduced. The hip was stable throughout typical maneuvers, including extension, external rotation to 70 degrees, the position of sleep as well as flexion to 90 degrees with internal rotation past 35 degrees. The shake test confirmed stability without impingement. Osteophytes were removed as necessary. The short external rotators and capsule were repaired back to the posterior trochanter through drill holes. The deep fascia was repaired with running number 2 barbed suture, followed by 2-0 Stratafix suture and 3-0 Stratafix suture in the dermis. Steri-Strips were placed on the skin, followed by a sterile occlusive dressing. There were no complications. Meticulous hemostasis was maintained with the AquaMantys device. The patient was brought to the recovery room in stable condition. There were no complications. Physician assistant cross country coach, Silvana Johansen PA-C, required for surgery; including patient positioning, draping, tissue retraction, maintaining instrument position, hip dislocation/ relocation, wound closure, and dressing placement. Implants The Accolade II hip stem, 132 degree size 4 , was utilized with excellent press-fit. The 52 mm Trident II acetabular component was impacted with excellent press-fit stability. 10 degree elevated polyethylene liner the +5, 36 mm Biolox ceramic femoral head was utilized. Estimated Blood Loss 200 Drains No Packing No Pathology None sent Complications No immediate complications Condition Stable Disposition PACU [facility]
[2024-04-11] MEDS: fentaNYL CITRATE INJ (*CRX) 100 MCG/2 ML VIAL 25 MCG IV PUSH ×2 (10:08→10:20)
[2024-04-11] MEDS: LABETALOL HCL INJ 100 MG/20 ML VIAL IV PUSH ×2 (10:45→11:56)
[2024-04-11] MEDS: hydrALAZINE HCL 20 MG/ML VIAL 5 MG IV PUSH ×3 (11:21→12:20)
[2024-04-11] MEDS: ONDANSETRON INJ 4 MG/2 ML VIAL IV PUSH ×2 (11:44→14:37)
--- NOTE | 2024-04-11 13:29 | ADMGEN ---
This patient, Camila Cherry, was admitted to 3 [facility] Surg Room 310-01. Patient/family oriented to hospital policies and general routines including ID bracelet, bed and alarms, visiting hours, pain management, procedures, bathroom and other care routines, personal items, smoking policy, room service/diet, and visiting hours. Information on how to activate the Rapid Response Team has been discussed. Patient/Family are encouraged to report perceived risks to care and to ask questions if they do not understand what they are told or what they should do. Report from Kesha in OR.
[2024-04-11] MEDS: ACETAMINOPHEN 325 MG TABLET 650 MG PO ×2 (13:50→17:21)
[2024-04-11] MEDS: SODIUM CHLORIDE 0.9% IV 1,000 ML 125 ML IV CONT (13:51)
--- NOTE | 2024-04-11 16:13 | PCPTNOTE ---
On 04/11/24, the student, [Suha Burden], provided care and completed [facility] documentation on this patient. I have reviewed the student's documentation and agree with the findings.
[2024-04-11] MEDS: SENNA/DOCUSATE SODIUM TABLET 2 TAB PO (16:29)
[2024-04-11] MEDS: LABETALOL HCL 100 MG TABLET 200 MG PO (16:29)
[2024-04-11] MEDS: cloNIDine HCL 0.1 MG TABLET PO (16:29)
[2024-04-11] MEDS: ASPIRIN 81 MG ENTERIC TABLET PO (21:53)
[2024-04-11] MEDS: FAMOTIDINE 20 MG TABLET PO (21:53)
[2024-04-12] MEDS: ACETAMINOPHEN 325 MG TABLET 650 MG PO ×3 (00:21→10:59)
[2024-04-12 06:00] VITALS: BP 120/68; PULSE 87; RESP 20; TEMP 36.8; O2SAT 92
[2024-04-12] MEDS: ceFAZolin 2 GM/D5W 50 ML 2 GM/50 ML BAG IVPB (06:04)
[2024-04-12 06:33] LABS: Basophils Percent Auto 0.1 % (0.2-1.2); Immature Granulocyte Absolute 0.04 K/mm3 (0.00-0.031); Immature Granulocyte Percent A 0.4 % (0-0.5); Lymphocytes Absolute Auto 0.84 K/mm3 (0.9-3.2); Lymphocytes Percent Auto 7.4 % (18.3-44.2); Mean Corpuscular HGB Conc 32.4 g/dl (32-36); Mean Corpuscular Hemoglobin 31.6 pg (26-34); Mean Corpuscular Volume 97.7 fl (80-100); Mean Platelet Volume 10.9 fl (7.4-10.4); Monocytes Percent Auto 8.5 % (2.6-8.5); Neutrophils Absolute Auto 9.4 K/mm3 (1.3-6.7); Neutrophils Percent Auto 83.6 % (45.5-73.1); Platelet Count Result 146 k/mm3 (150-375); Red Blood Count 3.48 M/mm3 (4.2-5.4); Red Cell Distribution Width 14.5 % (11.5-14.5); White Blood Count 11.3 K/mm3 (4.5-10.0)
[2024-04-12 06:41] LABS: Anion Gap 7 mmol/L (4-12); Blood Urea Nitrogen 35 mg/dL (7-17); Carbon Dioxide 25 mmol/L (22-30); Chloride 102 mmol/L (98-107); Estimated CRCL calculation 25 ml/min; Estimated Glomerular Filt Rate 26; Glucose 131 mg/dL (65-110); Potassium 4.8 mmol/L (3.4-5.0); Sodium 134 mmol/L (137-145)
[2024-04-12] MEDS: ONDANSETRON INJ 4 MG/2 ML VIAL IV PUSH (06:51)
[2024-04-12] MEDS: CALCIUM CARBONATE (TUMS) 500 MG (200 MG ELEMENTAL) PO (08:11)
[2024-04-12] MEDS: lisinopriL 20 MG TABLET 40 MG PO (08:13)
[2024-04-12] MEDS: FAMOTIDINE 20 MG TABLET PO (08:13)
[2024-04-12] MEDS: CHOLECALCIFEROL 1,000 UNITS TABLET 2000 UNITS PO (08:13)
[2024-04-12] MEDS: SPIRONOLACTONE 25 MG TABLET PO (08:14)
[2024-04-12 08:15] VITALS: PULSE 87
[2024-04-12] MEDS: LABETALOL HCL 100 MG TABLET 200 MG PO (08:15)
[2024-04-12] MEDS: allopurinoL 300 MG TABLET PO (08:15)
[2024-04-12] MEDS: SENNA/DOCUSATE SODIUM TABLET 2 TAB PO (08:15)
[2024-04-12] MEDS: cloNIDine HCL 0.1 MG TABLET PO (08:16)
[2024-04-12] MEDS: ASPIRIN 81 MG ENTERIC TABLET PO (08:16)
[2024-04-12] MEDS: polyethylene glycoL 3350 17 GM POWD.PACK PO (08:17)
--- NOTE | 2024-04-12 08:29 | PM.DS ---
DS: Admitting Diagnosis Discharge Date 04/12/24 Admitting Diagnosis Hip arthritis. DS: Discharge Diagnosis Discharge Diagnosis (1) Status post total hip replacement, left: Code(s): Z96.642 - Presence of left artificial hip joint Status: Acute Assessment and Plan: Postop day 1: Total hip arthroplasty. Patient tolerated procedure well. No complications. Pain manageable with pain medication. No numbness or tingling. We had a lengthy discussion regarding postoperative wound care, limitations, expectations, and exercises. Patient shows good understanding. Patient has had initial physical therapy and is tolerating it well. DVT prophylaxis: 81 mg baby aspirin b.i.d. for 14 days. Short frequent walks. Pain medication: Percocet. Patient has followup appointment with Dr. Wright in 3 weeks DS: Summary Hospital Course Reason for hospitalization: Total hip arthroplasty Hospital Course: Patient tolerated procedure well. Has had initial PT/OT and is tolerating it. Status at Discharge Functional status at discharge: uses cane/walker Overall status at discharge: patient is progressing back to baseline Time Spent with Patient Time attestation: Total time spent providing and/or coordinating discharge services: Exam Narrative: Thin, tall Male. Resting comfortably in chair. Wearing compression socks bilaterally. Dressing dry and intact with no drainage. Moderate swelling and distal edema. No ecchymosis. No erythema. No hematoma. Range of motion limited due to pain. Calf nontender. Thigh nontender. Neurologic status intact. No varicosities. Distal pulses palpable. DS: Data Data Completed and Pending Labs on day of discharge: Labs from last 24 hours 04/12/24 05:40 WBC 11.3 H RBC 3.48 L Hgb 11.0 L Hct 34.0 L MCV 97.7 MCH 31.6 MCHC 32.4 RDW 14.5 Plt Count 146 L MPV 10.9 H Immature Gran % (Auto) 0.4 Neut % (Auto) 83.6 H Lymph % (Auto) 7.4 L Dewey % (Auto) 8.5 Eos % (Auto) 0.0 Baso % (Auto) 0.1 L Lymph # (Auto) 0.84 L Dewey # (Auto) 1.0 H Eos # (Auto) 0.0 Baso # (Auto) 0.0 Abs Immat Gran (auto) 0.04 H Absolute Neuts (auto) 9.4 H Absolute Nucleated RBC 0.000 Nucleated RBC % 0.0 Sodium 134 L Potassium 4.8 Chloride 102 Carbon Dioxide 25 Anion Gap 7 BUN 35 H Creatinine 1.90 H Estim Creat Clear Calc 25 Estimated GFR 26 L Glucose 131 H Calcium 9.0 Discharge Plan Discharge Patient Disposition: Home, Self-Care Discharge Instructions: See green instruction sheets Stand Alone Forms: General Discharge Instructions Follow-up/Referrals: Silvana Johansen PA [Physician [employer] Stenographer] - Discharge Medications: New aspirin 81 mg tablet,delayed release (DR/EC) 81 mg PO BID 14 Days Qty: 28 0RF oxycodone-acetaminophen 5-325 mg tablet 1 - 2 tablet PO Q4-6H MDD 6 PRN (Reason: pain) Qty: 30 0RF Continued multivitamin Capsule 1 cap PO DAILY raloxifene 60 mg tablet 60 mg PO DAILY Rx Instructions: HOLDING February-April PER DR COX cholecalciferol (vitamin D3) 50 mcg (2,000 unit) capsule 2,000 unit PO DAILY albuterol sulfate [Ventolin HFA] 90 mcg/actuation HFA aerosol inhaler 2 puff INHALATION Q4-6H PRN (Reason: shortness of breath or wheezing) Qty: 8.5 3RF clonidine HCl 0.1 mg tablet 0.1 mg PO BID spironolactone 25 mg tablet 25 mg PO QAM lisinopril 40 mg tablet 40 mg PO QAM acetaminophen 650 mg Tablet Extended Release 1,300 mg PO Q12H calcium carbonate [Calci-Chew] 500 mg calcium (1,250 mg) tablet,chewable 500 mg PO DAILY labetalol 100 mg tablet 200 mg PO BID Qty: 360 1RF allopurinol 300 mg tablet 300 mg PO DAILY Qty: 90 3RF
[2024-04-12 09:58] VITALS: O2SAT 93
== END 2024-04-12 11:22 | disposition home or self-care (01) ==
LOC: ANHSURGERY 09:48 → ANH3MEDSUR 13:14
PROVIDERS: Physician Assistant Surgical; PCP Internal Medicine; Visit Provider Orthopaedic Surgery
PROC: (CPT 27130; principal; 2024-04-11 07:30)
DX: M16.12 Unilateral primary osteoarthritis, left hip (principal); I10 Essential (primary) hypertension; M10.9 Gout, unspecified; Z87.891 Personal history of nicotine dependence; E66.9 Obesity, unspecified; Z68.35 Body mass index [BMI] 35.0-35.9, adult; Z85.3 Personal history of malignant neoplasm of breast; Z79.51 Long term (current) use of inhaled steroids
CPT/HCPCS: 27130; 36415; 73502; 80048; 85025; 86850; 86900; 86901; 97110; 97116; 97161; 97165; 97530; 97535; A9270; C1776; J0171; J0360; J0690; J1100; J1170; J1596; J1885; J2250; J2270; J2405; J2704; J2710; J2795; J3010; J7030; J7120

== ENCOUNTER 2024-07-14 14:13 | Outpatient (CLI) | payer MEDICARE, SELFPAY ==
--- NOTE | ~2024-07-14 | MM_ITS ---
EXAMINATION: MM screening [facility] BI w [place] HISTORY: Screening TECHNIQUE: Craniocaudal and mediolateral oblique 3-D tomosynthesis images were obtained and synthetic 2-D images were generated. CAD analysis was submitted and interpreted. COMPARISON: Comparison to multiple prior studies sequentially, with oldest reviewed study dated 05/16. BREAST PARENCHYMAL COMPOSITION: Not dense: There are scattered areas of fibroglandular density. FINDINGS: There is distortion in the upper outer quadrant of the left breast posteriorly consistent w ith previous lumpectomy. There are also surgical changes in the right breast. There is no evidence of suspicious mass, calcification, or architectural distortion to suggest malignancy in either breast. There has been no suspicious interval change. IMPRESSION: 1. No mammographic evidence of malignancy. 2. Recommend routine screening mammography in one year. BI-RADS Category 2: Benign finding(s). Reviewed, dictated and finalized at location B.
== END 2024-07-14 14:14 | disposition home or self-care (01) ==
LOC: ANHIMG 14:17
PROVIDERS: PCP Internal Medicine; Visit Provider Surgery
DX: Z12.31 Encounter for screening mammogram for malignant neoplasm of breast (principal)
CPT/HCPCS: 77063; 77067